=== PATIENT | male | born 1990 | race Caucasian/White ===

== ENCOUNTER 2021-10-22 09:47 | Emergency (ER) | payer OTHER ==
[~2021-10-22] VITALS: Ht 180 cm; Wt 95.0 kg
--- OUTSIDE RECORDS SUMMARY | 2021-10-22 09:52 | XMS REPORT | Clinical Summary ---
Author Author [facility] Address Unknown Phone Unavailable Care Team Providers Care Shipping Team Leader Name Role Phone Berto Gunter PCP Unavailable Allergies No known active allergies Medications End Date Status Medication Sig Dispensed Refills Start Date Active hydrocodone-acetaminophen Take 1 tablet 0 (NORCO) 10-325 MG by mouth every 4 (four) hours as needed for Moderate Pain. Active ALPRAZolam (XANAX) 0.5 MG Take 0.5 mg 0 tabletIndications: by mouth Anxiety daily as needed for Anxiety (one to two tabs at Daily for anxiety PRN). Indications: Feeling Anxious Active FLUoxetine (PROZAC) 20 MG Take 1 30 capsule 0 capsuleIndications: capsule (20 6 Depression mg total) by mouth daily. Indications: Depression Active Problems No known active problems Resolved Problems Problem Noted Date Resolved Date Depression with suicidal ideation 08/29/201612/2015 Social History Date Tobacco Use Types Packs/Day Years Used Current Every Day Smoker 0.5 Tobacco Cessation: Ready to Quit: No; Co unseling Given: No Comments Alcohol Use Standard Drinks/Week No 0 (1 standard drink = 0.6 o z pure alcohol) Sex Assigned at Date Recorded Not on file Last Filed Vital Signs Reading Time Taken Comments Vital Sign 135/80 08/30/2016 8:28 PM CDT Blood Pressure 67 08/30/2016 8:28 PM CDT Pulse 36.5 C (97.7 F) 08/30/2016 8:28 PM CDT Temperature 18 08/30/2016 8:28 PM CDT Respiratory Rate 98% 08/30/2016 3:57 PM CDT Oxygen Saturation - - Inhaled Oxygen Concentration 93 kg (205 lb) 08/29/2016 10:13 PM CDT Weight 182.9 cm (6') 08/29/2016 10:13 PM CDT Height 27.8 08/29/2016 10:13 PM CDT Body Mass Index Plan of Treatment Health Maintenance Due Date Last Done Comments Varicella Vaccines (1 of 1992 2 - 2-dose childhood series) COVID-19 Vaccine (1) 1996 Hepatitis C Screening 2009 DTaP,Tdap,and Td Vaccines 2010 (1 - Tdap) MMR Vaccines-Adult 2010 Influenza Vaccine (#1) 2021 Pneumo-Vaccine: 65+Yrs (1 2056 of 1 - PPSV23) HIB Vaccines Aged Out No longer eligible based on patient's age to complete this topic IPV Vaccines Aged Out No longer eligible based on patient's age to complete this topic Meningococcal Vaccine Aged Out No longer eligib le based on patient's age to complete this topic Pneumo-Vaccine: Peds (0-5 Aged Out No longer el igible based on patient's age to Yrs) & At-Risk Patients complete this topic (6-64 Yrs) Rotavirus Vaccines Aged Out No longer eligible based on patient's age to complete this topic Results Not on filefrom Last 3 Months Insurance Type Payer Benefit Subscriber ID Effective Phone Address Plan / Dates Group HMO BCBS BCBS [id number] 2015-P [phone] [address] [place], [place] EPO [address] Advance Directives For more information, please contact: [phone] Patient Automatic Clipper Explanation Type Date Recorded Advance Directives and Living Will Power of Outdoor Recreation Specialist Date Inactivated Comments Code Status Date Activated Full Code 08/31/2016 2:28 PM 08/31/2016 2:28 PM Full Code 08/29/2016 10:18 PM Care Teams Start Date End Date Shipping Team Leader Relationship Specialty 08/29/16 Berto Gunter PCP - General Emergency Medicine
[2021-10-22] MEDS ORDERED: KETOROLAC 60 MG/2 ML VIAL IM STA (09:59)
[2021-10-22] MEDS ORDERED: ORPHENADRINE 60 MG/2 ML (NORFLEX) AMP (ED ONLY) IM STA (09:59)
--- NOTE | 2021-10-22 10:06 | ED Back Pain ---
General Chief Complaint: Back Problems Stated Complaint: BACK PAIN Source of Information: Patient History of Present Illness Date Seen by Provider: Oct 22, 2021 Time Seen by Provider: 09:49 Initial Comments 31-year-old male presenting with complaints of acute onset low back pain yesterday around 3 PM. He states that he was working out and doing squats for weight lifting. He does not feel that he was doing a excessive weight or anything out of the norm for his usual workout. He was on his last wrap and had sudden onset of pain and felt a popping sensation in the low back. He states that he was able to rack the weights but then fell to his knees and was unable to get back up due to pain in his back for approximately 10 to 15 minutes. He denies any loss of bowel or bladder control. He has had no weakness or numbness in his legs. He has increased pain with any use of his back such as going from sitting to standing. Trying to put on his shoes this morning took him 20 minutes due to the pain in his back. He denies any prior history of back issues. He does not have any pain shooting down one leg or the other but he does have some pain going down both legs into the buttocks and upper part of the back of his legs. Location: Lumbar Spine, Paraspinous Muscles Timing/Duration: 1 Day Severity: Moderate Pain/Injury Location: Back Radiation: Buttocks, Upper Legs Method of Injury: Other (doing squats for weight lifting in gym ) Modifying Factors: Worse With Movement Associated Symptoms: No fever, No weakness, No numbness in legs/feet; tingling in legs/feet; No sensory/motor loss; lower back pain; No loss of bladder control, No loss of bowel control Allergies and Home Medications Allergies Coded Allergies: No Known Drug Allergies (Unverified , 10/22/21) Patient Home Medication List Home Medication List Reviewed: Yes Hydrocodone/Acetaminophen (Hydrocodone-Acetamin 5-325 mg) 1 Each Tablet, 1 TAB PO Q6H PRN for PAIN-SEVERE (8-10) Prescribed by: BRANDY MATUTE on 10/22/21 1104 Ibuprofen (Ibuprofen) 600 Mg Tablet, 600 MG PO Q6H PRN for PAIN-MODERATE (5-7) Prescribed by: BRANDY MATUTE on 10/22/21 1105 Review of Systems Constitutional: No chills, No fever EENTM: no symptoms reported Respiratory: no symptoms reported Cardiovascular: no symptoms reported Gastrointestinal: no symptoms reported Genitourinary: no symptoms reported Musculoskeletal: see HPI Skin: no symptoms reported Psychiatric/Neurological: See HPI Past Fhtkyal-Lsbltg-Jwnutd Hx Patient Social History Tobacco Use?: No Use of E-Cig and/or Vaping dev: No Substance use?: No Alcohol Use?: No Past Medical History Surgeries: No Respiratory: No Cardiac: No Neurological: No Genitourinary: No Gastrointestinal: No Musculoskeletal: No Endocrine: No HEENT: No Psychosocial: No Integumentary: No Physical Exam Vital Signs Vital Signs - First Documented 10/22/21 09:59 Temp 36.0 Pulse 80 Resp 16 B/P (MAP) 138/73 (94) Pulse Ox 98 O2 Delivery Room Air Capillary Refill : Height, Weight, BMI Height: '" Weight: lbs. oz. kg; BMI Method: General Appearance: No Apparent Distress, WD/WN Neck: Full Range of Motion, Normal Inspection, Non Tender, Supple Cardiovascular: Regular Rate, Rhythm, No Edema, Normal Peripheral Pulses Respiratory: Chest Non Tender, Lungs Clear, Normal Breath Sounds, No Accessory Muscle Use, No Respiratory Distress Gastrointestinal: Normal Bowel Sounds, No Pulsatile Mass, Non Tender, Soft Back: No CVA Tenderness, Muscle Spasm (paraspinal muscles lumbar spine tight in spasm), Vertebral Tenderness (lumbar spine, no step offs or crepitus) Extremity: Normal Capillary Refill, Normal Inspection, Non Tender, No Pedal Edema Neurologic/Psychiatric: Alert, Oriented x3, No Motor/Sensory Deficits, esl instructor II- XII Norm as Tested, Other (DTR symmetrical 2/4 patellar, achilles) Skin: Normal Color, Warm/Dry Progress/Results/Core Measures Results/Orders My Orders Orders - BRANDY MATUTE MD Ketorolac Injection (Toradol Injection) (10/22/21 09:59) Orphenadrine Inj (Ed Only) (Norflex Inje (10/22/21 09:59) Ct Lumbar Spine Wo (10/22/21 09:59) Rx-Hydrocodone/Apap 5-325 Mg (Rx-Vicodin (10/22/21 11:00) Medications Given in ED Current Medications Medications Dose Ordered Sig/Irais Route Start Time Stop Time Status Last Admin Dose Admin Acetaminophen/ Hydrocodone Bitart 1 ea Q6H PRN PO 10/22/21 11:00 10/22/21 11:09 DC 10/22/21 11:11 1 EA Vital Signs/I&O 10/22/21 10/22/21 09:59 11:09 Temp 36.0 36.0 Pulse 80 80 Resp 16 16 B/P (MAP) 138/73 (94) 138/73 Pulse Ox 98 98 O2 Delivery Room Air Room Air Progress Progress Note #1: Progress Note Since he has not taken anything for his pain today will try Toradol and norflex here. With feeling a pop in his back with weight lifting doing squats on 10/21 around [address] scan to look for compression fracture or bulging disc. Progress Note #2: Progress Note CT scan shows bulging of the disc between L3 and L4. He has mild bulging L2-3. There is no significant spinal stenosis or spinal canal narrowing. Counseled patient on findings and treatment plan. Will use NSAIDs and anti-inflammatories to try and help with his symptoms. Try to rest and avoid aggravating activities. For severe pain try using hydrocodone. If he does have to use a lot of hydrocodone then consider a laxative to help avoid constipation. Establish care with a local provider so that if his symptoms are not improving or recurring then he could get referred for physical therapy and/or MRI and adapted physical education specialist. Counseled on follow-up and return precautions especially symptoms of cauda equina such as loss of bowel or bladder control Diagnostic Imaging Diagonstic Imaging: CT Plain Films/CT/US/NM/MRI: other (lumbar spine) Comments [facility] [place] NAME: KVNG GUPTA [facility] REC#: [id number] PT STATUS: REG ER : 1990 PHYSICIAN: BRANDY MATUTE MD ADMIT DATE: 10/22/21/ER FS Signed Date of Exam:10/22/21 CT LUMBAR SPINE WO PROCEDURE: CT lumbar spine without contrast. TECHNIQUE: Multiple contiguous axial images were obtained through the lumbar spine without the use of intravenous contrast. Sagittal and coronal reformations were then performed. Auto Exposure Controls were utilized during the CT exam to meet ALARA standards for radiation dose reduction. INDICATION: Low back pain after weightlifting. FINDINGS: Alignment of the lumbar spine is normal. The vertebral body heights are well maintained. The facets are normally aligned. There is no facet joint or disc space widening. There is no pars defect. There are no findings of an acute fracture. At L2-L3 there appears to be a small disc protrusion and mild loss of disc space height. There is only mild narrowing of the central canal. There is also mild narrowing of the central canal at L3-L4 due to diffuse mild disc bulge. No high-grade central canal stenosis is evident. There are no findings of high-grade foraminal stenosis. Bones of the pelvis unremarkable. The paraspinal soft tissues are unremarkable. Aorta is normal in caliber. The kidneys are nonobstructed IMPRESSION: 1. Normal height and alignment of lumbar spine without evidence of an acute fracture. 2. By CT imaging there appears to be a tiny disc protrusion at L2-L3 and mild diffuse disc bulging at L3-L4. There are no findings to suggest high-grade canal or lateral recess stenosis. No high-grade foraminal stenosis evident by CT. If continued symptomatology, further assessment with MRI could be considered as followup. Dictated by: Dictated on workstation # [id number] Dict: 10/22/21 1015 Trans: 10/22/21 1021 [facility] [id number] Interpreted by: JOAO ARAUJO MD Electronically signed by: JOAO ARAUJO MD 10/22/21 1021 Reviewed: Reviewed by Me Departure Impression Primary Impression: Acute lumbar back pain Qualified Codes: M54.50 - Low back pain, unspecified Additional Impression: Bulging of lumbar intervertebral disc without myelopathy Disposition: 01 HOME, SELF-CARE Condition: Stable Departure-Patient Inst. Decision time for Depature: 10:58 Referrals: ADRIAN CLARK MD, RICKY D DO NO,LOCAL PHYSICIAN (PCP) Primary Care Physician [facility] Patient Instructions: Opioids for Short-Term Treatment of Pain ED, Low Back Pain ED Add. Discharge Instructions: Take ibuprofen 400 to 600 mg (2 to 3 of the 200 mg over the counter pills) every 6 hours as needed for pain and inflammation in your back. You may try alternating ice and heat to your back to help with inflammation and spasms. Try to rest and avoid activities that cause pain in your back. Call and establish care with a primary provider for your health. If your back is not improving within the next 7 to 10 days then they may need to refer you for physical therapy and/or have the MRI or spine evaluation. For severe pain you may use the Hydrocodone/Acetaminophen 5/325 mg pills. 1 every 6 hours as needed for severe pain. If you have to use this regularly then consider taking a laxative to help keep your stools soft and regular as the narcotic, Hydrocodone, will cause constipati on. All discharge instructions reviewed with patient and/or family. Voiced understanding. Scripts Ibuprofen (Ibuprofen) 600 Mg Tablet 600 MG PO Q6H PRN for PAIN-MODERATE (5-7) for 10 Days, #40 TAB 0 Refills Prov: BRANDY MATUTE MD 10/22/21 Hydrocodone/Acetaminophen (Hydrocodone-Acetamin 5-325 mg) 1 Each Tablet 1 TAB PO Q6H PRN for PAIN-SEVERE (8-10) for 5 Days, #20 TAB 0 Refills Prov: BRANDY MATUTE MD 10/22/21 BRANDY MATUTE MD Oct 22, 2021 10:06
--- NOTE | 2021-10-22 10:21 | Diagnostic Imaging Report ---
PROCEDURE: CT lumbar spine without contrast. TECHNIQUE: Multiple contiguous axial images were obtained through the lumbar spine without the use of intravenous contrast. Sagittal and coronal reformations were then performed. Auto Exposure Controls were utilized during the CT exam to meet ALARA standards for radiation dose reduction. INDICATION: Low back pain after weightlifting. FINDINGS: Alignment of the lumbar spine is normal. The vertebral body heights are well maintained. The facets are normally aligned. There is no facet joint or disc space widening. There is no pars defect. There are no findings of an acute fracture. At L2-L3 there appears to be a small disc protrusion and mild loss of disc space height. There is only mild narrowing of the central canal. There is also mild narrowing of the central canal at L3-L4 due to diffuse mild disc bulge. No high-grade central canal stenosis is evident. There are no findings of high-grade foraminal stenosis. Bones of the pelvis unremarkable. The paraspinal soft tissues are unremarkable. Aorta is normal in caliber. The kidneys are nonobstructed IMPRESSION: 1. Normal height and alignment of lumbar spine without evidence of an acute fracture. 2. By CT imaging there appears to be a tiny disc protrusion at L2-L3 and mild diffuse disc bulging at L3-L4. There are no findings to suggest high-grade canal or lateral recess stenosis. No high-grade foraminal stenosis evident by CT. If continued symptomatology, further assessment with MRI could be considered as followup. Dictated by: Dictated on workstation # [id number]
[2021-10-22] MEDS ORDERED: ACHD5005 PO (11:03)
[2021-10-22] MEDS ORDERED: IBUP-1773 PO (11:05)
[2021-10-22 11:09] VITALS: BP 138/73
== END 2021-10-22 11:09 | disposition home or self-care (01) ==
LOC: ER FS 09:49
DX: M51.86 Other intervertebral disc disorders, lumbar region (principal); X50.1XXA Overexertion from prolonged static or awkward postures, initial encounter; Y92.39 Other specified sports and athletic area as the place of occurrence of the external cause; Y93.B3 Activity, free weights
CPT/HCPCS: 72131

== ENCOUNTER 2023-06-12 18:04 | Emergency (ER) | payer OTHER ==
[~2023-06-12 18:04] MED LIST: ACHD5005 PO; IBUP-1773 PO
--- NOTE | 2023-06-12 18:37 | ED Lower Extremity ---
General Chief Complaint: Lower Extremity Stated Complaint: LEFT FOOT INJURY/PAIN SWELLING Nursing Triage Note: PT AMB TO [facility] WITH C/O L FOOT INJURY YESTERDAY. PT STATES HE JUMPED AND LANDED ON HIS FEET AND THE PAIN HAS NOT GONE AWAY. PT DENIES TAKING ANY MEDS FOR PAIN Source: patient Exam Limitations: no limitations History of Present Illness Date Seen by Provider: Jun 12, 2023 Time Seen by Provider: 18:29 Initial Comments 33-year-old male presents to the ER with complaint of left foot pain which started yesterday after he jumped and landed on his foot. States he jumped approximately 1 to 2 feet in the air. Allergies and Home Medications Allergies Coded Allergies: No Known Drug Allergies (Unverified , 10/22/21) Patient Home Medication List Home Medication List Reviewed: Yes Hydrocodone/Acetaminophen (Hydrocodone-Acetamin 5-325 mg) 1 Each Tablet, 1 TAB PO Q6H PRN for PAIN-SEVERE (8-10) Prescribed by: BRANDY MATUTE on 10/22/21 1104 Ibuprofen (Ibuprofen) 600 Mg Tablet, 600 MG PO Q6H PRN for PAIN-MODERATE (5-7) Prescribed by: BRANDY MATUTE on 10/22/21 1105 Review of Systems Constitutional: see HPI Past Lyryvgl-Hejlyt-Ebafkf Hx Patient Social History Tobacco Use?: No Use of E-Cig and/or Vaping dev: No Substance use?: No Alcohol Use?: No Pt feels they are or have been: No Past Medical History Surgery/Hospitalization HX: DENIES Surgeries: No Respiratory: No Cardiac: No Neurological: No Genitourinary: No Gastrointestinal: No Musculoskeletal: No Endocrine: No HEENT: No Psychosocial: No Integumentary: No Physical Exam Vital Signs Vital Signs - First Documented 06/12/23 18:20 Pulse 84 Resp 14 B/P (MAP) 142/90 (107) Pulse Ox 98 O2 Delivery Room Air Capillary Refill : Height, Weight, BMI Height: '" Weight: lbs. oz. kg; 29.00 BMI Method: General Appearance: WD/WN, no apparent distress Neck: supple, normal inspection Cardiovascular: regular rate, rhythm Respiratory: lungs clear, normal breath sounds, no respiratory distress, no accessory muscle use Feet: left foot pain, left foot soft tissue tenderness, left foot other (Cap refill less than 3 seconds, sensation intact distally, pulses intact) Neurologic/Psychiatric: alert, normal mood/affect Skin: normal color, warm/dry Progress/Results/Core Measures Results/Orders My Orders Orders - RAMBO MONTGOMERY APRN Foot, Left, 3 Views (06/12/23 18:32) Vital Signs/I&O 06/12/23 18:20 Pulse 84 Resp 14 B/P (MAP) 142/90 (107) Pulse Ox 98 O2 Delivery Room Air Blood Pressure Mean: 107 Progress Progress Note : Progress Note Patient seen and evaluated, resting comfortably in recliner, no acute distress. Based on exam and symptoms, x-ray of left foot ordered. Departure Impression Primary Impression: Contusion of foot Disposition: HOME, SELF-CARE Condition: Stable Departure-Patient Inst. Decision time for Depature: 19:28 Referrals: NO,LOCAL PHYSICIAN (PCP/Family) Primary Care Physician Patient Instructions: Contusion (DC) Add. Discharge Instructions: You may take Tylenol or ibuprofen as needed for pain. Return for any new, concerning, or worsening symptoms. All discharge instructions reviewed with patient and/or family. Voiced understanding. RAMBO MONTGOMERY APRN Jun 12, 2023 18:37
--- NOTE | 2023-06-12 18:45 | Diagnostic Imaging Report ---
INDICATION: Left foot pain. Time of Exam: 6:43 PM No prior studies are available for comparison. Three views of the left foot were obtained. There appears to be a bone island in the proximal phalanx of the great toe. Metatarsals and phalanges are intact. Midfoot and hindfoot are unremarkable. No definite fractures are seen. There is a small lucency extending through the distal cortex of the navicular, however, this may represent a groove. Clinical correlation to pain at this location is recommended. No other abnormalities are seen. IMPRESSION: There is a short lucency through the navicular, as described. Clinical correlation to pain at this location is recommended. The study is otherwise unremarkable. Dictated by: Dictated on workstation # [id number]
[2023-06-12 19:31] VITALS: BP 130/84
== END 2023-06-12 19:32 | disposition home or self-care (01) ==
LOC: EDUNIT# 18:04 → ER 18:07
DX: S90.32XA Contusion of left foot, initial encounter (principal); W19.XXXA Unspecified fall, initial encounter; Y93.39 Activity, other involving climbing, rappelling and jumping off
CPT/HCPCS: 73630